=== PATIENT | female | born 1995 | race Caucasian/White ===

== ENCOUNTER 2021-05-10 16:38 | Outpatient (CLI) | payer BC ==
[~2021-05-10] VITALS: Ht 170.2 cm; Wt 98.2 kg
--- NOTE | 2021-05-10 16:45 | NUR ---
Pt arrived on unit ambulatory and with complaints of occasional contractions and a "zinging" pain every time the baby moves. Pt denies any leaking of fluid or vaginal bleeding and reports normal movement. EFM and toco monitors started. Vital signs WNL. SVE by this RN /-3.
[2021-05-10] MEDS ORDERED: PRENATAL (16:53)
--- NOTE | 2021-05-10 17:50 | NUR ---
SVE by this RN with no change. Information reviewed with Dr. Flores. Orders for discharge home received.
[2021-05-10 17:53] VITALS: BP 132/65; PULSE 71; TEMP 97.8
--- NOTE | 2021-05-10 17:55 | NUR ---
Discharge instructions reviewed with pt and at the bedside. Both verbalized an understanding, agreed with the plan and states no questions or concerns.
== END 2021-05-10 18:00 | disposition home or self-care (01) ==
LOC: LDRO 16:38 → LDR 17:28 → LDRO 17:28 → LDR 18:00 → LDRO 18:00
DX: Z34.93 Encounter for supervision of normal pregnancy, unspecified, third trimester (principal); Z3A.38 38 weeks gestation of pregnancy
CPT/HCPCS: OP

== ENCOUNTER 2021-05-16 20:19 | Inpatient (IN) | payer BC ==
[2021-05-16] VITALS (10 sets, daily range): BP systolic 124–145; BP diastolic 56–84; PULSE 74–98; TEMP 98.8
[~2021-05-16] VITALS: Ht 170.2 cm; Wt 98.6 kg
[~2021-05-16 20:19] MED LIST: PRENATAL
--- NOTE | 2021-05-16 20:30 | NUR ---
To unit via wheelchair for assessment, accompanied by spouse and pt's mother. Oriented to room, monitor,plan of care. Pt reports contractions have gotten "more intense" since earlier this afternoon when seen on this unit. SVE bloody show noted on glove with exam but none noted on perineum
--- NOTE | 2021-05-16 21:10 | NUR ---
Pt crying out and moaning with contractions, rapid breathing. Attempts to help pt with deep slow breaths unsuccessful. Family attentive at doting @ bedside, assisting pt with frequent position changes.
--- NOTE | 2021-05-16 21:45 | NUR ---
SROM with mec fluid. PT writhing on bed, screaming, SVE difficult, possibly 6cm.
--- NOTE | 2021-05-16 22:00 | NUR ---
Standing @ bedside, moaning and crying with contractions, not coping well. Family continues attentive @ bedside. FHT's with deceleration to 130's for 2 minutes, unable to monitor contractions r/t pts frequent moving and non-tolerance to palpation.
--- NOTE | 2021-05-16 22:20 | NUR ---
MARIZA WET SUIT GLUER into room for epidural placement. Pt repositioned to edge of bed. Difficult to maintain FHR tracing, maternal pulse 91, requires much coaching to maintain postion for epidural placement. 2234 Epidural test dose.
--- NOTE | 2021-05-16 22:36 | NUR ---
pt crying " I have to poop or something" 2239 Assist onto back after epidural taping. SVE complete, +1. Dr Tamra called to come for delivery, NSY and charge nurse notified.
[2021-05-16 22:40] LABS: BASO % 0.2 % (0.0-2.0); EOS # 0.1 (0.0-0.7); EOS % 0.7 % (0-4.0); GRAN % 70.8 % (42.2-75.2); HEMATOCRIT 38.6 % (37.0-47.0); LYMPH % 23.6 % (20.0-51.0); MEAN CELL VOLUME 85 fl (80.0-100.0); MEAN CORPUSCULAR HEMOGLOBIN 28 pg (27.0-31.0); MEAN CORPUSCULAR HGB CONC 34 g/dl (33.0-37.0); MEAN PLATELET VOLUME 9.7 fl (7.4-10.4); MONO # 0.5 (0.1-0.6); MONO % 4.1 % (1.7-9.3); PLATELET COUNT 267 K/mm3 (130-400); RED BLOOD COUNT 4.57 M/mm3 (4.10-5.30); REDCELL DISTRIBUTION WIDTH-CV 14.3 % (11.5-14.5)
--- NOTE | 2021-05-16 22:52 | NUR ---
Dr Barboza into room, pt prepped for delivery. pushing instructions given 2257 of male with nuchl cord by Dr Barboza.
--- NOTE | 2021-05-16 23:00 | NUR ---
Placenta delivers spont and intact. 30unit Pitocin in 500cc LR piggybacked to mainline LR to run at bolus rate. pt st cathed by Dr Barboza with return of moderate amount urine.
--- NOTE | 2021-05-16 23:10 | NUR ---
Perineal repair complete, pericare done, ice pack to perineum and bed together.
[2021-05-17] VITALS (7 sets, daily range): BP systolic 117–133; BP diastolic 57–84; PULSE 68–82; TEMP 98.1–98.5
--- NOTE | 2021-05-17 02:30 | NUR ---
IV to INT. Epidural dc'd. Up to bathroom with steady gait, voids large amount, performs own pericare after instruction, clean gown on. Ambulates to room, oriented to room. plan of care.
--- NOTE | 2021-05-17 10:28 | NUR ---
Initial visit; Parents thanked Electrical Manager for looking in on them and offering congratulations and God's blessings for the of their son. Electrical Manager thanked family for choosing [facility].
[2021-05-18 07:45] VITALS: BP 122/79; PULSE 76; TEMP 98
--- NOTE | 2021-05-18 13:00 | NUR ---
DISCHARGE YSABEL COMPLETED. PT EDUCATED ON FOLLOW UP APPOINTMENT. QUESTIONS INVITED AND ANSWERED.
== END 2021-05-18 13:30 | disposition home or self-care (01) | DRG 807 ==
LOC: LDRO 20:19 → LDR 20:20 → LDRO 22:00 → LDR 22:05 → OB 05-17 03:00
PROVIDERS: Obstetrics & Gynecology; ADMIT Obstetrics & Gynecology
PROC: 10E0XZZ Delivery of Products of Conception, External Approach (ICD-10-PCS; principal; 2021-05-16)
PROC: 0KQM0ZZ Repair Perineum Muscle, Open Approach (ICD-10-PCS; 2021-05-16)
DX: O99.52 Diseases of the respiratory system complicating childbirth (principal); Z37.0 Single live birth; J45.909 Unspecified asthma, uncomplicated; O77.0 Labor and delivery complicated by meconium in amniotic fluid; O99.344 Other mental disorders complicating childbirth; F90.9 Attention-deficit hyperactivity disorder, unspecified type; O69.81X0 Labor and delivery complicated by cord around neck, without compression, not applicable or unspecified; O70.1 Second degree perineal laceration during delivery; Z3A.39 39 weeks gestation of pregnancy
CPT/HCPCS: J2590; J2795; J7120